=== PATIENT | female | born 1995 | race Two or more races ===

== ENCOUNTER 2017-07-12 20:36 | Emergency (ER) | payer BC, OTHER ==
--- NOTE | 2017-07-13 03:05 | EDM.PDOC ---
ED HPI GENERAL MEDICAL PROBLEM - General Chief Complaint: Gastrointestinal Problem Stated Complaint: wants feeding tube removed Time Seen by Provider: 07/12/17 20:56 Source of Information: Reports: Patient History Limitations: Reports: No Limitations - History of Present Illness INITIAL COMMENTS - FREE TEXT/NARRATIVE: Pt. has been having problems with losing weight secondary to nausea/vomiting. She has been to the [facility] and an NG feeding tube was placed yesterday. HE states that the tube was very uncomfortable, so she removed a large amount of the tube but cant get the whole catheter out of her nose. she requests that it be removed. Throat Pain Score (Numeric/FACES): 9 - Related Data Allergies Allergy/AdvReac Type Severity Reaction Status Date / Time No Known Allergies Allergy Verified 07/12/17 20:43 Home Meds: Home Meds Omeprazole 20 mg PO BIDAC 07/12/17 [History] Ondansetron HCl [Ondansetron] 4 mg PO Q4H PRN 07/12/17 [History] Promethazine [Phenergan] 12.5 mg PO Q8H 07/12/17 [History] Past Medical History Gastrointestinal History: Reports: GERD, Other (See Below) Other Gastrointestinal History: undiagnosed problem that has caused vomiting and weight loss - Past Surgical History HEENT Surgical History: Reports: Tonsillectomy Social & Family History - Tobacco Use Smoking Status *Q: Current Every Day Smoker Years of Tobacco use: 5 Packs/Tins Daily: 0.5 ED ROS GENERAL - Review of Systems Review Of Systems: See Below Constitutional: Reports: No Symptoms HEENT: Reports: No Symptoms Respiratory: Reports: No Symptoms Cardiovascular: Reports: No Symptoms Endocrine: Reports: No Symptoms GI/Abdominal: Reports: Nausea, Vomiting, Other (feeding tube almost completely removed.) : Reports: No Symptoms Musculoskeletal: Reports: No Symptoms Skin: Reports: No Symptoms Neurological: Reports: No Symptoms Psychiatric: Reports: No Symptoms Hematologic/Lymphatic: Reports: No Symptoms Immunologic: Reports: No Symptoms ED EXAM, GENERAL - Physical Exam Exam: See Below Ears: Normal External Exam, Normal Canal, Hearing Grossly Normal, Normal TMs Ear Exam: Bilateral Ear: Auricle Normal, Canal Normal, TM normal Nose: Normal Inspection, Normal Mucosa, No Blood, Other (NG feeding tube almost completely removed. approx. 10-15 cm of retained catheter noted to be in place.) Throat/Mouth: Normal Inspection, Normal Lips, Normal Teeth, Normal Gums, Normal Oropharynx, Normal Voice, No Airway Compromise Head: Atraumatic, Normocephalic Course - Vital Signs Last Recorded V/S: Last Vital Signs Temp 37.1 C 07/12/17 20:45 Pulse 93 07/12/17 20:45 Resp 18 07/12/17 20:45 BP 147/93 H 07/12/17 21:06 Pulse Ox 100 07/12/17 20:45 Departure - Departure Time of Disposition: 21:10 Disposition: Home, Self-Care 01 Clinical Impression: Unintended weight loss - Discharge Information Referrals: PCP,None [Primary Care Provider] - Forms: ED Department Discharge Additional Instructions: Contact your prop attendant tomorrow to discuss what to do next.
== END 2017-07-12 21:10 | disposition home or self-care (01) ==
LOC: VM.ED 20:36
DX: R63.4 Abnormal weight loss (principal); R11.2 Nausea with vomiting, unspecified; F17.210 Nicotine dependence, cigarettes, uncomplicated; Z79.899 Other long term (current) drug therapy
CPT/HCPCS: 99283

== ENCOUNTER 2018-05-11 01:58 | Emergency (ER) | payer BC, MEDICAID, OTHER ==
[2018-05-11 03:20] LABS: CHLORIDE,CL 101 mmol/L (98-107); SODIUM,NA 137 mmol/L (136-145)
[2018-05-11 03:29] LABS: ANION GAP 14.5 mmol/L (10-20)
[2018-05-11] MEDS: Sodium Chloride 0.9% 1,000 ML IV ONE (03:32)
--- NOTE | 2018-05-11 04:14 | EDM.PDOC ---
ED HPI GENERAL MEDICAL PROBLEM - General Chief Complaint: General Stated Complaint: tachycardia, not feeling well Time Seen by Provider: 05/11/18 04:00 Source of Information: Reports: Patient History Limitations: Reports: Other (patient history is sketchy) - History of Present Illness INITIAL COMMENTS - FREE TEXT/NARRATIVE: Patient ambulates by pedis, to the emergency department at [facility]. Patient c/o of tachycardia, SOB, and possible infection r/t to lipoma removal on 04-29-18. Patient states she was seen in the walk-in clinic in [place] on Wednesday for abdominal pain. She was started on Keflex 500 mg BID x 5 days for cellulitis r/t to abdominal wound. Patient states she took the last dose this morning. Patient reports abdominal pain as dull and achy, rates pain 2/3 out of 10. Patient denies taking OTC medications for relief of symptoms. Patient has also developed a persist dry nonproductive cough. No focal neurological problems. Patient denies any N/V/D. Onset: Gradual Onset Date: 05/06/18 Duration: Constant Location: Reports: Chest, Abdomen Quality: Reports: Ache, Dull Severity: Mild Improves with: Reports: Rest Worsens with: Reports: Breathing Associated Symptoms: Reports: Chest Pain, Cough, Fever/Chills (denies chills), Seizure (has a history of seizures but denies any occurance since 2017). Denies: Diaphoresis Treatments [employer] SUPER[employer]OR: Reports: EKG Abdomen Pain Score (Numeric/FACES): 3 chest Pain Score (Numeric/FACES): 3 - Related Data Allergies Allergy/AdvReac Type Severity Reaction Status Date / Time aloe vera Allergy Itching Verified 05/11/18 03:07 Penicillins Allergy Hives Verified 05/11/18 03:07 Home Meds: Home Meds Divalproex Sodium [Depakote] 500 mg PO BID 05/06/18 [History] Past Medical History Gastrointestinal History: Reports: GERD, Other (See Below) Other Gastrointestinal History: undiagnosed problem that has caused vomiting and weight loss - Past Surgical History HEENT Surgical History: Reports: Tonsillectomy Other Cardiovascular Surgeries/Procedures: States she had a cardiac work up prior to surgery due to having a murmur Social & Family History - Family History Family Medical History: Noncontributory - Tobacco Use Smoking Status *Q: Current Every Day Smoker Years of Tobacco use: 4 Packs/Tins Daily: 0.2 - Recreational Drug Use Recreational Drug Use: Yes Drug Use in Last 12 Months: Yes Recreational Drug Type: Reports: Marijuana/Hashish Recreational Drug Use Frequency: Socially ED ROS GENERAL - Review of Systems Review Of Systems: See Below Constitutional: Reports: Fever, Fatigue. Denies: Diaphoresis HEENT: Reports: Rhinitis Respiratory: Reports: Shortness of Breath, Pleuritic Chest Pain, Cough Cardiovascular: Reports: Chest Pain (2/2 cough) GI/Abdominal: Reports: Abdominal Pain, Constipation. Denies: Diarrhea, Nausea, Vomiting Skin: Reports: No Symptoms. Denies: Diaphoresis Neurological: Reports: No Symptoms ED EXAM, GENERAL - Physical Exam Exam: See Below Exam Limited By: No Limitations General Appearance: Alert, No Apparent Distress Nose: Nasal Deformity (patient states she has broken nose several times in the past) Throat/Mouth: Normal Inspection, Normal Lips, Normal Teeth, Normal Gums, Normal Oropharynx, Normal Voice, No Airway Compromise Head: Atraumatic, Normocephalic Neck: Normal Inspection, Supple, Non-Tender, Full Range of Motion Respiratory/Chest: No Respiratory Distress, Lungs Clear, Normal Breath Sounds, No Accessory Muscle Use, Chest Non-Tender Cardiovascular: Normal Peripheral Pulses, No Edema, No Gallop, No JVD, No Murmur , No Rub, Tachycardia Peripheral Pulses: 2+: Brachial (L), Brachial (R) GI/Abdominal: Normal Bowel Sounds, Soft, Non-Tender, No Organomegaly, No Distention, No Abnormal Bruit, No Mass, Pelvis Stable Back Exam: Normal Inspection, Full Range of Motion Extremities: Normal Inspection, Normal Range of Motion, Non-Tender, No Pedal Edema, Normal Capillary Refill Neurological: Oriented, CN II-XII Intact, Normal Cognition, Normal Gait, Normal Reflexes, No Motor/Sensory Deficits Psychiatric: Normal Affect, Normal Mood Skin Exam: Warm, Dry, Intact, Normal Color, No Rash Lymphatic: No Adenopathy EKG INTERPRETATION EKG Date: 05/11/18 Time: 02:50 Rhythm: Other (sinus tachycardia) Rate (Beats/Min): 108 Wylie: Other (P-R-T) QRS: Normal ST-T: Normal QT: Normal Comparison: NA - No Prior EKG Course - Vital Signs Last Recorded V/S: Last Vital Signs Temp 38.3 C H 05/11/18 03:11 Pulse 105 H 05/11/18 03:11 Resp 20 05/11/18 03:11 BP 133/81 05/11/18 03:11 Pulse Ox 99 05/11/18 03:11 - Orders/Labs/Meds Orders: Active Orders 24 hr Category Date Time Status CULTURE BLOOD [BC] Stat Lab 05/11/18 03:21 Results CULTURE BLOOD [BC] Stat Lab 05/11/18 03:25 Results Labs: Laboratory Tests 05/11/18 05/11/18 05/11/18 Range/Units 02:53 02:53 02:53 WBC 12.6 H (4.0-10.0) x10^3/uL RBC 5.01 (4.00-5.50) x10^6/uL Hgb 14.8 (12.0-16.0) g/dL Hct 43.5 (33.0-47.0) % MCV 86.8 (78.0-93.0) fL MCH 29.5 (26.0-32.0) pg MCHC 34.0 (32.0-36.0) g/dL RDW Coeff of Ravinder 13.7 (10.0-15.0) % Plt Count 254 (130-400) x10^3/uL Neut % (Auto) 69.1 (50.0-80.0) % Lymph % (Auto) 19.6 L (25.0-50.0) % Burleigh % (Auto) 10.1 (2.0-11.0) % Eos % (Auto) 0.6 (0.0-4.0) % Baso % (Auto) 0.6 (0.2-1.2) % Sodium 137 (136-145) mmol/L Potassium 3.5 (3.5-5.1) mmol/L Chloride 101 (98-107) mmol/L Carbon Dioxide 25 (21-32) mmol/L Anion Gap 14.5 (10-20) mmol/L BUN 8 (7-18) mg/dL Creatinine 0.8 (0.55-1.02) mg/dL Est Cr Clr Drug Dosing 92.02 mL/min Estimated GFR (MDRD) > 60 Glucose 87 (74-106) mg/dL Lactic Acid 1.8 (0.4-2.0) mmol/L Calcium 9.4 (8.5-10.1) mg/dL Corrected Calcium 9.80 (8.5-10.1) mg/dL Total Bilirubin 0.5 (0.2-1.0) mg/dL AST 9 L (15-37) U/L ALT 16 (14-59) U/L Alkaline Phosphatase 82 (46-116) U/L C-Reactive Protein 4.5 H (<=0.9) mg/dL Total Protein 8.0 (6.4-8.2) g/dL Albumin 3.5 (3.4-5.0) g/dL Globulin 4.5 Albumin/Globulin Ratio 0.78 Meds: Medications Discontinued Medications Generic Name Dose Route Start Last Admin Trade Name Freq PRN Reason Stop Dose Admin Azithromycin 1 packet 05/11/18 04:26 Take Home: Azithromycin 250 Mg, 2 Tab Pack PO 05/11/18 04:27 ONETIME ONE Sodium Chloride 1,000 mls @ 999 mls/hr 05/11/18 02:55 05/11/18 03:32 Normal Saline IV 05/11/18 03:55 999 mls/hr ONETIME ONE Administration Methylprednisolone Sodium Succinate 125 mg 05/11/18 04:26 Solu-Medrol IVPUSH 05/11/18 04:27 ONETIME ONE Departure - Departure Time of Disposition: 04:37 Disposition: Home, Self-Care 01 Condition: Good Clinical Impression: Dehydration Cellulitis Qualifiers: Site of cellulitis: trunk Site of cellulitis of trunk: abdominal wall Qualified Code(s): L03.311 - Cellulitis of abdominal wall - Discharge Information *PRESCRIPTION DRUG MONITORING PROGRAM REVIEWED*: Not Applicable *COPY OF PRESCRIPTION DRUG MONITORING REPORT IN PATIENT YOUNG: Not Applicable Instructions: Cellulitis, Adult Referrals: Ramos Marie MD [Ordering Only Provider] - Forms: ED Department Discharge Additional Instructions: 1. Stay well hydrated and rest 2. Take additional antibiotics for the next 5 days 3. Try OTC cough syrup 4. Strongly recommend seeing your PCP or other provider for further workup 5. Call us with any questions or concerns 6. Take Tylenol/Advil for any fever or pains - Problem List Review Problem List Initiated/Reviewed/Updated: Yes - My Orders Last 24 Hours: My Active Orders 05/11/18 03:21 CULTURE BLOOD [BC] Stat 05/11/18 03:25 CULTURE BLOOD [BC] Stat - Assessment/Plan Last 24 Hours: My Active Orders 05/11/18 03:21 CULTURE BLOOD [BC] Stat 05/11/18 03:25 CULTURE BLOOD [BC] Stat Assessment:: Cellulitis, right lower abdominal wall cough fever clinical dehydration Plan: 1) Patient educated/encouraged to increase fluid intake. 2) Follow-up with PCP as symptoms warrant. 3) Take antibiotics as prescribed, for there full intended course.
[2018-05-11] MEDS: Take Home: Azithromycin 250 MG, 2 Tab Pack PO ONE (04:33)
[2018-05-11] MEDS: methylPREDNISolone Sodium Succinate 125 MG/2 ML SDV IVPUSH ONE (04:33)
== END 2018-05-11 04:46 | disposition home or self-care (01) ==
LOC: VM.ED 01:58
DX: L03.311 Cellulitis of abdominal wall (principal); E86.0 Dehydration; F17.210 Nicotine dependence, cigarettes, uncomplicated; Z88.0 Allergy status to penicillin; Z91.048 Other nonmedicinal substance allergy status
CPT/HCPCS: 36415; 80053; 83605; 85025; 86140; 87040; 87804; 93010; 96361; 96374; 99284; 99285; A9270; J2930; J7030

== ENCOUNTER 2018-09-04 03:25 | Emergency (ER) | payer MEDICAID ==
[2018-09-04] MEDS ORDERED: Sodium Chloride 0.9% 10 ML Syringe FLUSH PRN (03:43)
[2018-09-04] MEDS ORDERED: Sodium Chloride 0.9% 1,000 ML IV ONE (03:46)
[2018-09-04 04:24] LABS: BARBITURATE SCREEN,URINE NEGATIVE (NEGATIVE); BENZODIAZEPINES SCREEN,URINE NEGATIVE (NEGATIVE); EDDP,URINE SCREEN NEGATIVE (NEGATIVE); METHAMPHETAMINE SCREEN, URINE NEGATIVE (NEGATIVE); TCA SCREEN,URINE NEGATIVE (NEGATIVE); THC SCREEN,URINE 50 NG/ML NEGATIVE (NEGATIVE)
[2018-09-04] MEDS ORDERED: Metoclopramide 10 MG/2 ML SDV IVPUSH ONE (04:32)
[2018-09-04 04:35] LABS: CHLORIDE,CL 106 mmol/L (98-107); SODIUM,NA 143 mmol/L (136-145)
[2018-09-04 04:42] LABS: ANION GAP 16.9 mmol/L (10-20)
--- NOTE | 2018-09-04 05:02 | EDM.PDOC ---
ED HPI GENERAL MEDICAL PROBLEM - General Chief Complaint: General Stated Complaint: Palpitations, vomiting Time Seen by Provider: 09/04/18 03:30 Source of Information: Reports: Patient History Limitations: Reports: No Limitations - History of Present Illness INITIAL COMMENTS - FREE TEXT/NARRATIVE: Pt. presents to ER with complaints of nausea, vomiting, and palpitations. She states that the symptoms started around 0130 this AM. She states that she was sitting at a bonfire when it started. She states that she has had 4 alcoholic beverages tonight. Pt. states that the onset was very rapid. Denies any abdominal pain. Pt. states that she has a history of unknown-type intermittent tachycardia in the past but is not on any medications. She denies any diarrhea. Denies any rashes. No sore throat or rhinorrhea. She states that she has some chest pain, worse since vomiting. She states that she was checking her pulse and states that it was 140 when the symptoms started. EMS was summoned, pt. was in a sinus rhythm at 90 without any intervention during transport. Onset: Today Onset Date: 09/04/18 Onset Time: 01:30 Location: Reports: Chest, Abdomen Associated Symptoms: Reports: Nausea/Vomiting Treatments RED CROSS EXECUTIVE DIRECTOR: Reports: EKG, IV/IO Other Treatments RED CROSS EXECUTIVE DIRECTOR: zofran x2 mid upper chest Pain Score (Numeric/FACES): 5 - Related Data Allergies Allergy/AdvReac Type Severity Reaction Status Date / Time aloe vera Allergy Itching Verified 09/04/18 04:31 Penicillins Allergy Hives Verified 09/04/18 04:31 Home Meds: Home Meds Divalproex Sodium [Depakote] 500 mg PO BID 05/06/18 [History] Past Medical History Gastrointestinal History: Reports: GERD, Other (See Below) Other Gastrointestinal History: undiagnosed problem that has caused vomiting and weight loss - Past Surgical History HEENT Surgical History: Reports: Tonsillectomy Other Cardiovascular Surgeries/Procedures: States she had a cardiac work up prior to surgery due to having a murmur Social & Family History - Family History Family Medical History: Noncontributory ED ROS GENERAL - Review of Systems Review Of Systems: See Below Constitutional: Reports: No Symptoms HEENT: Reports: No Symptoms Respiratory: Reports: No Symptoms Cardiovascular: Reports: Chest Pain, Palpitations. Denies: Dyspnea on Exertion Endocrine: Reports: No Symptoms GI/Abdominal: Reports: Nausea. Denies: Black Stool, Bloody Stool, Diarrhea, Difficulty Swallowing, Distension, Hematemesis, Hematochezia, Melena : Reports: No Symptoms Musculoskeletal: Reports: No Symptoms Skin: Reports: No Symptoms Neurological: Reports: No Symptoms Psychiatric: Reports: No Symptoms Hematologic/Lymphatic: Reports: No Symptoms Immunologic: Reports: No Symptoms ED EXAM, GENERAL - Physical Exam Exam: See Below Exam Limited By: No Limitations General Appearance: Alert, WD/WN, No Apparent Distress Throat/Mouth: Normal Inspection, Normal Lips, Normal Teeth, Normal Gums, Normal Oropharynx, Normal Voice, No Airway Compromise Head: Atraumatic, Normocephalic Neck: Normal Inspection, Supple, Non-Tender, Full Range of Motion Respiratory/Chest: No Respiratory Distress, Lungs Clear, Normal Breath Sounds, No Accessory Muscle Use, Chest Non-Tender Cardiovascular: Normal Peripheral Pulses, Regular Rate, Rhythm, No Edema, No Gallop, No JVD, No Murmur Peripheral Pulses: 4+: Radial (R) GI/Abdominal: Soft, Non-Tender, No Organomegaly, No Distention, No Mass (Female) Exam: Deferred Rectal (Female) Exam: Deferred Back Exam: Normal Inspection Extremities: Normal Inspection, Normal Range of Motion, Non-Tender, No Pedal Edema, Normal Capillary Refill Neurological: Alert, Oriented, CN II-XII Intact, Normal Cognition, Normal Gait, Normal Reflexes, No Motor/Sensory Deficits Psychiatric: Normal Affect, Normal Mood Skin Exam: Warm, Dry, Intact, Normal Color, No Rash Lymphatic: No Adenopathy Course - Vital Signs Last Recorded V/S: Last Vital Signs Temp 36.3 C 09/04/18 03:30 Pulse 90 09/04/18 05:46 Resp 20 09/04/18 05:46 BP 114/73 09/04/18 03:30 Pulse Ox 98 09/04/18 05:46 - Orders/Labs/Meds Orders: Active Orders 24 hr Category Date Time Status EKG Documentation Completion [RC] STAT Care 09/04/18 03:44 Active Chest 1V Frontal [CR] Stat Exams 09/04/18 03:47 Taken Peripheral IV Insertion Adult [OM.PC] Routine Oth 09/04/18 03:44 Ordered Labs: Laboratory Tests 09/04/18 09/04/18 09/04/18 Range/Units 03:44 03:45 03:45 WBC (4.0-10.0) x10^3/uL RBC (4.00-5.50) x10^6/uL Hgb (12.0-16.0) g/dL Hct (33.0-47.0) % MCV (78.0-93.0) fL MCH (26.0-32.0) pg MCHC (32.0-36.0) g/dL RDW Coeff of Ravinder (10.0-15.0) % Plt Count (130-400) x10^3/uL Add Manual Diff Neutrophils % (Manual) (50-80) % Lymphocytes % (Manual) (25-50) % Monocytes % (Manual) (2-11) % Eosinophils % (Manual) (0-4) % Basophils % (Manual) (0-1) % Myelocytes % (0) % Platelet Estimate PT (10.0-12.8) SEC INR (2.0-3.5) D-Dimer, Quantitative (<=0.58) mg/LFEU Sodium (136-145) mmol/L Potassium (3.5-5.1) mmol/L Chloride (98-107) mmol/L Carbon Dioxide (21-32) mmol/L Anion Gap (10-20) mmol/L BUN (7-18) mg/dL Creatinine (0.55-1.02) mg/dL Est Cr Clr Drug Dosing Estimated GFR (MDRD) Glucose (74-106) mg/dL Calcium (8.5-10.1) mg/dL Corrected Calcium (8.5-10.1) mg/dL Phosphorus (2.6-4.7) mg/dL Magnesium (1.8-2.4) mg/dL Total Bilirubin (0.2-1.0) mg/dL AST (15-37) U/L ALT (14-59) U/L Alkaline Phosphatase (46-116) U/L POC Troponin I (0.00-0.08) ng/mL Troponin I C-Reactive Protein (<=0.9) mg/dL Total Protein (6.4-8.2) g/dL Albumin (3.4-5.0) g/dL Globulin Albumin/Globulin Ratio TSH, Ultra Sensitive (0.358-3.74) uIU/mL Urine Color Yellow (YELLOW) Urine Appearance Clear (CLEAR) Urine pH 7.0 (5.0-8.0) Ur Specific [place] 1.015 Urine Protein Negative (NEGATIVE) mg/dL Urine Glucose (UA) Negative (NEGATIVE) mg/dL Urine Ketones 15 H (NEGATIVE) mg/dL Urine Occult Blood Small H (NEGATIVE) Urine Nitrite Negative (NEGATIVE) Urine Bilirubin Negative (NEGATIVE) Urine Urobilinogen 0.2 (0.2) EU/dL Ur Leukocyte Esterase Negative (NEGATIVE) Urine RBC 0-5 (NOT SEEN) /HPF Urine WBC 0-5 (NOT SEEN) /HPF Ur Squamous Epith Cells Rare (NEGATIVE) /HPF Urine Bacteria Not seen (NEGATIVE) /HPF Urine Mucus Not seen (NEGATIVE) /LPF POC Urine HCG, Qual Negative (NEGATIVE) Urine Opiates Screen Negative (NEGATIVE) Ur Buprenorphine Scrn Negative (NEGATIVE) Ur Oxycodone Screen Negative (NEGATIVE) Ur EDDP (Meth Metab) Negative (NEGATIVE) Urine Methadone Screen Negative (NEGATIVE) Ur Barbiturates Screen Negative (NEGATIVE) Ur Tricyclics Screen Negative (NEGATIVE) Ur Phencyclidine Scrn Negative (NEGATIVE) Ur Amphetamine Screen Negative (NEGATIVE) U Methamphetamines Scrn Negative (NEGATIVE) Urine MDMA Screen Negative (NEGATIVE) U Benzodiazepines Scrn Negative (NEGATIVE) U Cocaine Metab Screen Negative (NEGATIVE) U Marijuana (THC) Screen Negative (NEGATIVE) Ethyl Alcohol (0-3) mg/dL 09/04/18 09/04/18 09/04/18 Range/Units 03:57 03:57 03:57 WBC 8.0 (4.0-10.0) x10^3/uL RBC 4.33 (4.00-5.50) x10^6/uL Hgb 13.3 D (12.0-16.0) g/dL Hct 38.9 (33.0-47.0) % MCV 89.8 D (78.0-93.0) fL MCH 30.7 (26.0-32.0) pg MCHC 34.2 (32.0-36.0) g/dL RDW Coeff of Ravinder 12.2 (10.0-15.0) % Plt Count 238 (130-400) x10^3/uL Add Manual Diff Yes Neutrophils % (Manual) 55 (50-80) % Lymphocytes % (Manual) 37 (25-50) % Monocytes % (Manual) 4 (2-11) % Eosinophils % (Manual) 1 (0-4) % Basophils % (Manual) 2 H (0-1) % Myelocytes % 1 H (0) % Platelet Estimate Adequate PT 10.1 (10.0-12.8) SEC INR 0.9 L (2.0-3.5) D-Dimer, Quantitative 0.22 (<=0.58) mg/LFEU Sodium (136-145) mmol/L Potassium (3.5-5.1) mmol/L Chloride (98-107) mmol/L Carbon Dioxide (21-32) mmol/L Anion Gap (10-20) mmol/L BUN (7-18) mg/dL Creatinine (0.55-1.02) mg/dL Est Cr Clr Drug Dosing Estimated GFR (MDRD) Glucose (74-106) mg/dL Calcium (8.5-10.1) mg/dL Corrected Calcium (8.5-10.1) mg/dL Phosphorus (2.6-4.7) mg/dL Magnesium (1.8-2.4) mg/dL Total Bilirubin (0.2-1.0) mg/dL AST (15-37) U/L ALT (14-59) U/L Alkaline Phosphatase (46-116) U/L POC Troponin I (0.00-0.08) ng/mL Troponin I C-Reactive Protein (<=0.9) mg/dL Total Protein (6.4-8.2) g/dL Albumin (3.4-5.0) g/dL Globulin Albumin/Globulin Ratio TSH, Ultra Sensitive (0.358-3.74) uIU/mL Urine Color (YELLOW) Urine Appearance (CLEAR) Urine pH (5.0-8.0) Ur Specific [place] Urine Protein (NEGATIVE) mg/dL Urine Glucose (UA) (NEGATIVE) mg/dL Urine Ketones (NEGATIVE) mg/dL Urine Occult Blood (NEGATIVE) Urine Nitrite (NEGATIVE) Urine Bilirubin (NEGATIVE) Urine Urobilinogen (0.2) EU/dL Ur Leukocyte Esterase (NEGATIVE) Urine RBC (NOT SEEN) /HPF Urine WBC (NOT SEEN) /HPF Ur Squamous Epith Cells (NEGATIVE) /HPF Urine Bacteria (NEGATIVE) /HPF Urine Mucus (NEGATIVE) /LPF POC Urine HCG, Qual (NEGATIVE) Urine Opiates Screen (NEGATIVE) Ur Buprenorphine Scrn (NEGATIVE) Ur Oxycodone Screen (NEGATIVE) Ur EDDP (Meth Metab) (NEGATIVE) Urine Methadone Screen (NEGATIVE) Ur Barbiturates Screen (NEGATIVE) Ur Tricyclics Screen (NEGATIVE) Ur Phencyclidine Scrn (NEGATIVE) Ur Amphetamine Screen (NEGATIVE) U Methamphetamines Scrn (NEGATIVE) Urine MDMA Screen (NEGATIVE) U Benzodiazepines Scrn (NEGATIVE) U Cocaine Metab Screen (NEGATIVE) U Marijuana (THC) Screen (NEGATIVE) Ethyl Alcohol (0-3) mg/dL 09/04/18 09/04/18 Range/Units 03:57 04:08 WBC (4.0-10.0) x10^3/uL RBC (4.00-5.50) x10^6/uL Hgb (12.0-16.0) g/dL Hct (33.0-47.0) % MCV (78.0-93.0) fL MCH (26.0-32.0) pg MCHC (32.0-36.0) g/dL RDW Coeff of Ravinder (10.0-15.0) % Plt Count (130-400) x10^3/uL Add Manual Diff Neutrophils % (Manual) (50-80) % Lymphocytes % (Manual) (25-50) % Monocytes % (Manual) (2-11) % Eosinophils % (Manual) (0-4) % Basophils % (Manual) (0-1) % Myelocytes % (0) % Platelet Estimate PT (10.0-12.8) SEC INR (2.0-3.5) D-Dimer, Quantitative (<=0.58) mg/LFEU Sodium 143 (136-145) mmol/L Potassium 3.9 (3.5-5.1) mmol/L Chloride 106 (98-107) mmol/L Carbon Dioxide 24 (21-32) mmol/L Anion Gap 16.9 (10-20) mmol/L BUN 10 (7-18) mg/dL Creatinine 0.8 (0.55-1.02) mg/dL Est Cr Clr Drug Dosing TNP Estimated GFR (MDRD) > 60 Glucose 112 H (74-106) mg/dL Calcium 8.9 (8.5-10.1) mg/dL Corrected Calcium 9.46 (8.5-10.1) mg/dL Phosphorus 2.6 (2.6-4.7) mg/dL Magnesium 1.7 L (1.8-2.4) mg/dL Total Bilirubin 0.2 (0.2-1.0) mg/dL AST 17 (15-37) U/L ALT 27 (14-59) U/L Alkaline Phosphatase 77 (46-116) U/L POC Troponin I 0.00 (0.00-0.08) ng/mL Troponin I Cancelled C-Reactive Protein < 0.2 (<=0.9) mg/dL Total Protein 6.8 (6.4-8.2) g/dL Albumin 3.3 L (3.4-5.0) g/dL Globulin 3.5 Albumin/Globulin Ratio 0.94 TSH, Ultra Sensitive 3.499 (0.358-3.74) uIU/mL Urine Color (YELLOW) Urine Appearance (CLEAR) Urine pH (5.0-8.0) Ur Specific [place] Urine Protein (NEGATIVE) mg/dL Urine Glucose (UA) (NEGATIVE) mg/dL Urine Ketones (NEGATIVE) mg/dL Urine Occult Blood (NEGATIVE) Urine Nitrite (NEGATIVE) Urine Bilirubin (NEGATIVE) Urine Urobilinogen (0.2) EU/dL Ur Leukocyte Esterase (NEGATIVE) Urine RBC (NOT SEEN) /HPF Urine WBC (NOT SEEN) /HPF Ur Squamous Epith Cells (NEGATIVE) /HPF Urine Bacteria (NEGATIVE) /HPF Urine Mucus (NEGATIVE) /LPF POC Urine HCG, Qual (NEGATIVE) Urine Opiates Screen (NEGATIVE) Ur Buprenorphine Scrn (NEGATIVE) Ur Oxycodone Screen (NEGATIVE) Ur EDDP (Meth Metab) (NEGATIVE) Urine Methadone Screen (NEGATIVE) Ur Barbiturates Screen (NEGATIVE) Ur Tricyclics Screen (NEGATIVE) Ur Phencyclidine Scrn (NEGATIVE) Ur Amphetamine Screen (NEGATIVE) U Methamphetamines Scrn (NEGATIVE) Urine MDMA Screen (NEGATIVE) U Benzodiazepines Scrn (NEGATIVE) U Cocaine Metab Screen (NEGATIVE) U Marijuana (THC) Screen (NEGATIVE) Ethyl Alcohol 47 H (0-3) mg/dL Meds: Medications Discontinued Medications Generic Name Dose Route Start Last Admin Trade Name Freq PRN Reason Stop Dose Admin Sodium Chloride 1,000 mls @ 1,000 mls/hr 09/04/18 03:46 09/04/18 04:10 Normal Saline IV 09/04/18 04:45 1,000 mls/hr .BOLUS ONE Administration Metoclopramide HCl 10 mg 09/04/18 04:32 09/04/18 04:38 Reglan IVPUSH 09/04/18 04:33 10 mg ONETIME ONE Administration Ondansetron HCl 1 packet 09/04/18 05:11 09/04/18 05:27 Take Home: Ondansetron Odt 4 Mg, 2 Tab Pack PO 09/04/18 05:12 1 packet ONETIME ONE Administration Sodium Chloride 10 ml 09/04/18 03:43 Saline Flush FLUSH ASDIRECTED PRN Keep Vein Open Departure - Departure Time of Disposition: 06:00 Disposition: Home, Self-Care 01 Condition: Good Clinical Impression: Gastroenteritis, Atypical chest pain - Discharge Information Instructions: Viral Gastroenteritis, Adult, Ondansetron oral dissolving tablet Referrals: PCP,Unobtain [Primary Care Provider] - Forms: ED Department Discharge Additional Instructions: Zofran ODT 4mg 1 daily every 8 hours as needed for nausea/vomiting Clear liquid diet today Return to ER if unable to hold down fluids, if you have fever or chills, or other worsening symptoms. Recheck in clinic in 7-10 days - My Orders Last 24 Hours: My Active Orders 09/04/18 03:44 EKG Documentation Completion [RC] STAT Peripheral IV Insertion Adult [OM.PC] Routine 09/04/18 03:47 Chest 1V Frontal [CR] Stat - Assessment/Plan Last 24 Hours: My Active Orders 09/04/18 03:44 EKG Documentation Completion [RC] STAT Peripheral IV Insertion Adult [OM.PC] Routine 09/04/18 03:47 Chest 1V Frontal [CR] Stat Plan: Zofran ODT 4mg 1 daily every 8 hours as needed for nausea/vomiting Clear liquid diet today Return to ER if unable to hold down fluids, if you have fever or chills, or other worsening symptoms. Recheck in clinic in 7-10 days
[2018-09-04] MEDS ORDERED: Take Home: Ondansetron 4 MG Tab.DIS, 2 Tab Pack PO ONE (05:11)
--- NOTE | 2018-09-04 09:23 | CR ---
[id number] RAD/RAD Chest PA or AP 1V EXAM: SINGLE VIEW CHEST. INDICATION: CHEST PAIN COMPARISON: NO PREVIOUS SIMILAR EXAM IS AVAILABLE FINDINGS: The lungs are clear. The cardiomediastinal contour is normal. IMPRESSION: NO ACUTE PROCESS. Keltno Whitaker MD 09/04/18 0922 Thank you for allowing us to participate in the care of your patient.
== END 2018-09-04 06:01 | disposition home or self-care (01) ==
LOC: VM.ED 03:25
DX: K52.9 Noninfective gastroenteritis and colitis, unspecified (principal); R07.89 Other chest pain; Z88.0 Allergy status to penicillin; Z91.09 Other allergy status, other than to drugs and biological substances; Z79.899 Other long term (current) drug therapy
CPT/HCPCS: 36415; 71045; 80053; 80305; 81001; 81025; 83735; 84100; 84443; 84484; 85025; 85379; 85610; 86140; 93005; 96361; 96374; 99285; A9270; G0480; J2765; J7030